=== PATIENT | male | born 1995 | race African-American/Black ===

== ENCOUNTER 2016-12-11 16:57 | Emergency (ER) | payer SELFPAY ==
[~2016-12-11] VITALS: Ht 182.9 cm; Wt 72.7 kg
[2016-12-11 16:59] VITALS: BP 112/73; PULSE 98; TEMP 98.9
== END 2016-12-11 18:50 | disposition home or self-care (01) ==
LOC: COL.ER 16:57 → EDBD 17:08 → COL.ER 17:08
DX: R07.9 Chest pain, unspecified (principal); R41.9 Unspecified symptoms and signs involving cognitive functions and awareness; F41.0 Panic disorder [episodic paroxysmal anxiety]; F17.210 Nicotine dependence, cigarettes, uncomplicated
CPT/HCPCS: J1885